=== PATIENT | female | born 1985 | race Caucasian/White ===

== ENCOUNTER 2020-10-20 12:31 | Emergency (ER) | payer SELFPAY ==
[~2020-10-20] VITALS: Ht 157.5 cm; Wt 66.2 kg
[2020-10-20 12:35] VITALS: BP 114/73
--- NOTE | 2020-10-20 12:42 | NUR ---
Patient ambulated to room 7 with a steady gait.
--- NOTE | 2020-10-20 12:43 | NUR ---
Patient is a 35 y/o female c/c worsening anxiety over the past three months. Patient notes that she has been prescribed Sertraline but is not taking it. Patient also c/o occipital head pressure 02/08 today. Patient denies head injury or trauma. PMH: Anxiety Meds: none Allergies: PCN LMP: 09/22/20
--- NOTE | 2020-10-20 13:07 | NUR ---
PA Donohue at the bedside evaluating patient.
[2020-10-20] MEDS ORDERED: LORazepam 0.5 MG TAB PO ONE (13:25)
--- NOTE | 2020-10-20 13:30 | NUR ---
Patient declined PO NICOLASA Cordova informed and aware.
[2020-10-20 14:00] VITALS: BP 114/73
--- NOTE | 2020-10-20 14:00 | NUR ---
Patient discharged with v/s stable. Written and verbal after care instructions given and explained. Patient verbalized understanding. Ambulatory with steady gait. All questions addressed prior to discharge. Advised to follow up with PMD.
== END 2020-10-20 14:00 | disposition home or self-care (01) ==
LOC: MED 12:31
DX: F32.9 Major depressive disorder, single episode, unspecified (principal); F41.1 Generalized anxiety disorder; R00.2 Palpitations; M43.6 Torticollis; E11.9 Type 2 diabetes mellitus without complications; I10 Essential (primary) hypertension; D64.9 Anemia, unspecified; Z87.448 Personal history of other diseases of urinary system; Z88.0 Allergy status to penicillin
CPT/HCPCS: 81025; 99281; 99282